=== PATIENT | male | born 1950 | race Caucasian/White ===

== ENCOUNTER → 2021-12-19 | Outpatient (CLI) | payer OTHER | LOC: M LABSMTC 11:21 | PROVIDERS: ATTEND Surgery | DX: Z01.812 Encounter for preprocedural laboratory examination (principal); Z20.822 Contact with and (suspected) exposure to COVID-19 ==

== ENCOUNTER → 2022-04-22 | Outpatient (CLI) | payer OTHER ==
[2022-04-22 11:12] LABS: CHOLESTEROL RISK RATIO 3.088 (<5)
== END ==
LOC: M WUC 08:07
PROVIDERS: ATTEND Nurse Practitioner Family
DX: I48.91 Unspecified atrial fibrillation (principal)

== ENCOUNTER → 2022-05-17 | Outpatient (CLI) | payer MEDICARE, BC | LOC: M RAD 13:50 | PROVIDERS: ATTEND Otolaryngology | DX: J32.9 Chronic sinusitis, unspecified (principal) ==

== ENCOUNTER → 2022-06-10 | Outpatient (CLI) | payer MEDICARE, BC ==
[2022-06-10 17:14] LABS: BASO # 0.1 10^3/uL (0.0-0.2); BASO % 1.2 % (0.0-1.0); EOS # 0.2 10^3/uL (0.0-0.5); EOS % 3.9 % (0.0-3.0); HEMATOCRIT 42.9 % (42.0-52.0); HEMOGLOBIN 13.8 g/dl (13.5-17.5); LYMPH # 0.3 10^3/uL (1.5-5.0); LYMPH % 7.1 % (24.0-44.0); MEAN CORPUSCULAR HEMOGLOBIN 31.2 pg (27.0-33.0); MEAN CORPUSCULAR HGB CONC 32.2 g/dl (32.0-36.5); MEAN CORPUSCULAR VOLUME 97.1 fl (80.0-96.0); MONO # 0.5 10^3/uL (0.0-0.8); MONO % 12.5 % (2.0-8.0); NEUTROPHILS # 3.1 10^3/uL (1.5-8.5); NEUTROPHILS % 75.1 % (36.0-66.0); PLATELET COUNT, AUTOMATED 193 10^3/uL (150-450); RED BLOOD COUNT 4.42 10^6/uL (4.30-6.10); WHITE BLOOD COUNT 4.1 10^3/uL (4.0-10.0)
[2022-06-10 18:50] LABS: ALBUMIN 3.5 GM/DL (3.2-5.2); ALT/SGPT 24 U/L (12-78); BILIRUBIN,TOTAL 0.3 MG/DL (0.2-1.0); BLOOD UREA NITROGEN 19 MG/DL (7-18); CALCIUM LEVEL 9.1 MG/DL (8.8-10.2); CARBON DIOXIDE LEVEL 30 MEQ/L (21-32); CHLORIDE LEVEL 105 MEQ/L (98-107); GLOMERULAR FILTRATION RATE > 60.0 (>42); GLUCOSE, FASTING 83 MG/DL (70-100); POTASSIUM SERUM 4.7 MEQ/L (3.5-5.1); SODIUM LEVEL 137 MEQ/L (136-145); TOTAL PROTEIN 6.6 GM/DL (6.4-8.2)
[2022-06-14 23:07] LABS: PSA TOTAL 2.8 ng/mL (0.0-4.0)
== END ==
LOC: M WUC 10:54
PROVIDERS: ATTEND Nurse Practitioner Family
DX: R97.20 Elevated prostate specific antigen [PSA] (principal); C85.91 Non-Hodgkin lymphoma, unspecified, lymph nodes of head, face, and neck

== ENCOUNTER → 2022-06-30 | Outpatient (CLI) | payer MEDICARE, BC ==
[~2022-06-30] MED LIST: METO1TAB7 PO; POTA10CA32 PO
== END ==
LOC: M LABSMTC 10:08
PROVIDERS: ATTEND Anesthesiology
DX: Z01.812 Encounter for preprocedural laboratory examination (principal); Z11.52 Encounter for screening for COVID-19

== ENCOUNTER 2022-07-05 11:17 | Day surgery (SDC) | payer MEDICARE, BC ==
[~2022-07-05] VITALS: Ht 175.3 cm; Wt 80.7 kg
[2022-07-05] MEDS ORDERED: LR 1,000 ML IV SCH ×2 (12:15→15:50)
[2022-07-05] MEDS ORDERED: METHYLENE BLUE 0.5% (5MG/ML) 10 ML AMP (PROVAYBLUE) As Ordered ONE (13:01)
[2022-07-05] MEDS ORDERED: LIDOCAINE W/EPINEPHRINE 1% 20ML VIAL As Ordered ONE (13:01)
[2022-07-05] MEDS ORDERED: COCAINE 4% 4ML NASAL SOLUTION BTL As Ordered ONE (13:02)
[2022-07-05] MEDS ORDERED: OXYMETAZOLINE 0.05% NASAL SPRAY (AFRIN) As Ordered ONE ×2 (13:02→15:07)
[2022-07-05] MEDS ORDERED: ROCURONIUM BROMIDE 50 MG/5 ML VIAL As Ordered ONE (13:48)
[2022-07-05] MEDS ORDERED: fentaNYL 100 MCG/2 ML INJECTION As Ordered ONE (13:48)
[2022-07-05] MEDS ORDERED: MIDAZOLAM INJ 2MG/2ML VIAL (J2250 PER 1MG) As Ordered ONE (13:48)
[2022-07-05] MEDS ORDERED: SUGAMMADEX SODIUM 500 MG/5 ML VIAL (BRIDION) As Ordered ONE (13:48)
[2022-07-05] MEDS ORDERED: ONDANSETRON 4MG 2ML VIAL As Ordered ONE (13:48)
[2022-07-05] MEDS ORDERED: ePHEDrine SULFATE 25 MG/5 ML(5MG/ML) SYRINGE As Ordered ONE (13:48)
[2022-07-05] MEDS ORDERED: propofoL 200 MG/20 ML VIAL As Ordered ONE (13:48)
[2022-07-05] MEDS ORDERED: LIDOCAINE 2% 100MG/5ML SDV (FOR ANES.) As Ordered ONE (13:48)
[2022-07-05] MEDS ORDERED: ACETAMINOPHEN 1000MG 100ML IV BAG As Ordered ONE (13:58)
[2022-07-05] MEDS ORDERED: ONDANSETRON 4MG 2ML VIAL IV PRN ×2 (15:50→16:20)
[2022-07-05] MEDS ORDERED: fentaNYL 100 MCG/2 ML INJECTION IV PRN (15:50)
[2022-07-05] MEDS: oxyCODONE 5MG TAB PO PRN ×2 (16:05→16:38)
[2022-07-05] MEDS: HYDROMORPHONE HCL 0.5 MG/ 0.5 ML SYRINGE (J1170 PER 1) IV PRN ×3 (16:05→16:39)
[2022-07-05] MEDS ORDERED: ANEXSIA, NORCO 7.5MG/325MG TABLET(HYDROCODONE/APAP) PO PRN (16:15)
[2022-07-05 18:00] VITALS: BP 150/65
== END 2022-07-05 18:05 | disposition home or self-care (01) ==
LOC: M SDC 11:17
PROVIDERS: ATTEND Otolaryngology
DX: J32.9 Chronic sinusitis, unspecified (principal); I48.91 Unspecified atrial fibrillation; I48.92 Unspecified atrial flutter; C85.80 Other specified types of non-Hodgkin lymphoma, unspecified site; Z92.3 Personal history of irradiation; Z79.899 Other long term (current) drug therapy; Z91.041 Radiographic dye allergy status; Z91.018 Allergy to other foods
CPT/HCPCS: 31255; 31267; 31276; 31288; 88305; C9046; J0131; J1100; J1170; J2250; J2405; J3010; Q9968

== ENCOUNTER → 2022-09-22 | Outpatient (CLI) | payer MEDICARE, BC ==
[~2022-09-22] MED LIST changes: -POTA10CA32 PO; +POTA10CA33 PO
[2022-09-22 13:00] LABS: FREE T4 1.12 NG/DL (0.89-1.76)
[2022-09-22 13:01] LABS: THYROID STIMULATING HORMONE 0.707 uIU/ML (0.55-4.78)
[2022-09-23 19:07] LABS: TESTOSTERONE FREE (DIRECT) 2.8 pg/mL (6.6-18.1)
== END ==
LOC: M WUC 10:44
PROVIDERS: ATTEND Nurse Practitioner Family
DX: F52.21 Male erectile disorder (principal); I48.91 Unspecified atrial fibrillation

== ENCOUNTER → 2023-03-22 | Outpatient (REF) | payer MEDICARE, BC ==
[~2023-03-22] MED LIST changes: -POTA10CA33 PO; +POTA10CA60 PO
[2023-03-22 13:00] LABS: CHOLESTEROL RISK RATIO 4.14 (<5); HDL CHOLESTEROL 29.4 MG/DL (>40); LDL CHOLESTEROL 71.6 MG/DL (<100); NON-HDL-C 92.6 MG/DL
[2023-03-23 23:07] LABS: PSA FREE 0.36 ng/mL; PSA TOTAL 4.5 ng/mL (0.0-4.0)
== END ==
LOC: M LABWUC 11:50
PROVIDERS: ATTEND Nurse Practitioner Family
DX: R97.20 Elevated prostate specific antigen [PSA] (principal); C85.91 Non-Hodgkin lymphoma, unspecified, lymph nodes of head, face, and neck; I48.91 Unspecified atrial fibrillation; Z79.899 Other long term (current) drug therapy

== ENCOUNTER → 2023-04-06 | Outpatient (CLI) | payer MEDICARE, BC ==
[~2023-04-06] MED LIST changes: +ISOVUE-370 76% 100ML VIAL As Ordered ONE
== END ==
LOC: M RAD 08:21
PROVIDERS: ATTEND Physician Assistant
DX: C83.31 Diffuse large B-cell lymphoma, lymph nodes of head, face, and neck (principal); C82.91 Follicular lymphoma, unspecified, lymph nodes of head, face, and neck; R59.9 Enlarged lymph nodes, unspecified
CPT/HCPCS: 70496; 70498; Q9967

== ENCOUNTER → 2023-04-07 | Outpatient (CLI) | payer MEDICARE, BC ==
[~2023-04-07] MED LIST changes: -ISOVUE-370 76% 100ML VIAL As Ordered ONE
== END ==
LOC: M PLARAD 13:29
DX: C82.91 Follicular lymphoma, unspecified, lymph nodes of head, face, and neck (principal); C83.31 Diffuse large B-cell lymphoma, lymph nodes of head, face, and neck; J01.40 Acute pansinusitis, unspecified; J32.4 Chronic pansinusitis